=== PATIENT | male | born 1930 | race Caucasian/White ===

== ENCOUNTER 2019-11-07 05:02 | Day surgery (SDC) | payer OTHER ==
[~2019-11-07 05:02] MED LIST: ACETAMINOPHEN 325 MG TABLET (FP) PO PRN; BSS (NA/CA/MG/K) BALANCED SALT SOLUTION OPHTH SOLN 15 ML BOTTLE OS ONE; CHONDROITIN SU A/HYALUR SOD 1 KIT IO ONE; CYCLOPENTOLATE HCL 1% OPHTH SOLN 2 ML BOTTLE OP SCH; KETOROLAC TROMETHAMINE 0.5% EYE DROP 1 DROP DROPS OP SCH; LIDOCAINE HCL 1% PRESERVATIVE FREE - 30ML VIAL IO ONE; OFLOXACIN 0.3% OPHTHALMIC SOLUTION 5 ML BOTTLE OP SCH; PHENYLEPHRINE 2.5% OPHTH SOLN 15 ML BOTTLE OP SCH; PHENYLEPHRINE/KETOROLAC 4 ML VIAL IO ONE; POVIDONE-IODINE 5% OPHTHALMIC PREP 30 ML SOLUTION OS ONE; TETRACAINE 0.5% OPHTH SOLN 2 ML BOTTLE OS ONE; TROPICAMIDE 1% OPHTH SOLN 15 ML BOTTLE OP SCH; TRYPAN BLUE 0.5 ML DISP.SYRIN IO ONE
[2019-11-07] MEDS ORDERED: LIDOCAINE HCL/PF 1% SDV 5ML VIAL ONE (07:22)
[2019-11-07] MEDS ORDERED: POVIDONE-IODINE 5% OPHTHALMIC PREP 30 ML SOLUTION ONE (07:22)
[2019-11-07] MEDS ORDERED: TETRACAINE 0.5% OPHTH SOLN 2 ML BOTTLE ONE (07:22)
[2019-11-07] MEDS ORDERED: CHONDROITIN SU A/HYALUR SOD 1 KIT ONE (07:24)
[2019-11-07 09:49] VITALS: TEMP 96.8
[2019-11-07] MEDS ORDERED: TROPICAMIDE 1% OPHTH SOLN 15 ML BOTTLE ONE (09:56)
[2019-11-07] MEDS ORDERED: OFLOXACIN 0.3% OPHTHALMIC SOLUTION 5 ML BOTTLE ONE (09:56)
[2019-11-07] MEDS ORDERED: KETOROLAC TROMETHAMINE 0.5% EYE DROP 1 DROP DROPS ONE (09:57)
[2019-11-07] MEDS ORDERED: CYCLOPENTOLATE HCL 1% OPHTH SOLN 2 ML BOTTLE ONE (09:57)
[2019-11-07] MEDS ORDERED: PHENYLEPHRINE 2.5% OPHTH SOLN 15 ML BOTTLE OS ONE (10:00)
[2019-11-07] MEDS ORDERED: KETOROLAC TROMETHAMINE 0.5% EYE DROP 1 DROP DROPS OS ONE (10:00)
[2019-11-07] MEDS ORDERED: TROPICAMIDE 1% OPHTH SOLN 15 ML BOTTLE OS ONE (10:00)
[2019-11-07] MEDS ORDERED: CYCLOPENTOLATE HCL 1% OPHTH SOLN 2 ML BOTTLE OS ONE (10:00)
[2019-11-07] MEDS ORDERED: OFLOXACIN 0.3% OPHTHALMIC SOLUTION 5 ML BOTTLE OS ONE (10:00)
[2019-11-07] MEDS ORDERED: MIDAZOLAM HCL 2 MG/2 ML SINGLE DOSE VIAL ONE (11:51)
[2019-11-07] MEDS ORDERED: TETRACAINE 0.5% OPHTH SOLN 2 ML BOTTLE OS ONE (12:01)
[2019-11-07] MEDS ORDERED: POVIDONE-IODINE 5% OPHTHALMIC PREP 30 ML SOLUTION OS ONE (12:03)
[2019-11-07] MEDS ORDERED: CHONDROITIN SU A/HYALUR SOD 1 KIT IO ONE (12:08)
[2019-11-07] MEDS ORDERED: LIDOCAINE HCL 1% PRESERVATIVE FREE - 30ML VIAL IO ONE (12:08)
[2019-11-07] MEDS ORDERED: BSS (NA/CA/MG/K) BALANCED SALT SOLUTION OPHTH SOLN 15 ML BOTTLE OS ONE (12:08)
[2019-11-07] MEDS ORDERED: TRYPAN BLUE 0.5 ML DISP.SYRIN ONE (12:14)
[2019-11-07] MEDS ORDERED: TRYPAN BLUE 0.5 ML DISP.SYRIN IO ONE (12:20)
[2019-11-07] MEDS ORDERED: PHENYLEPHRINE/KETOROLAC 4 ML VIAL IO ONE (12:30)
--- NOTE | 2019-11-07 13:56 | OP ---
DATE OF OPERATION: DATE OF DICTATION: 11/07/2019 PREOPERATIVE DIAGNOSIS: Cataract, left eye. 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 3. Astigmatism, left eye. PROCEDURE: Phacoemulsification of left cataract with capsule staining with trypan blue, iris expansion with iris hooks and a toric posterior chamber intraocular lens implantation. LENS USED: [id number] lens, 23.0 diopter power, serial number [id number] ANESTHESIA: Topical, MAC. COMPLICATIONS: None. PROCEDURE: The patient was brought to the operating room and correctly identified along with the operative site as well as correct intraocular lens gonzalez. With the patient sitting upright, the 3, 6 and 9 o'clock positions were marked on his left cornea using a toric marker. The patient was placed in position on the stretcher and the garces were reinforced under the microscope. The eye was then prepped and draped in the usual sterile fashion including Betadine solution in the conjunctival sac and an eyelid drape. An eyelid speculum was then placed into the left eye. The 5-degree position was marked with a corneal toric marker. A paracentesis was created and 0.5 mL of preservative-free 1% lidocaine was given intracamerally. An air bubble was then placed in the eye and the capsule stained with trypan blue. Some of the BSS spiked with the Omidria was also placed in the eye. Viscoelastic was then injected to inflate the anterior chamber and a temporal clear corneal wound created at 15 degrees. Five additional paracentesis ports were created and using iris hooks the pupil was expanded in a raina configuration. A continuous circular capsulorrhexis was performed. The nucleus was then hydrodissected with BSS and removed with phacoemulsification via [id number] approach. The remaining cortical material was irrigated and aspirated from the eye. The viscoelastic was injected to inflate the capsular bag. The lens was injected into the bag and was noted to be approximately 10 degrees with final resting position. The iris hooks were then removed from the eye. The viscoelastic irrigated and aspirated from the eye. The pupil did remain dilated due to Omidria and using irrigation with the IA tip and an Sinskey hook the intraocular lens was rotated into its final position at 5 degrees. The garces were confirmed along with the corneal markings. All wounds were stromal hydrated and tested and found to be watertight. No suture was placed. At the end of the surgery the intraocular lens was noted to be well centered and covered by the anterior capsular border aligned at 5 degrees according to the intraocular lens markings and corneal marking. Topical vancomycin given, the eye patched and shielded, and the patient discharged from the operating room in a stable condition. MAZIN COPE M.D. [id number] [place]
[2019-11-07 15:03] VITALS: BP 119/65; PULSE 64
== END 2019-11-07 15:17 | disposition home or self-care (01) ==
LOC: JASU-SURG 05:02
PROVIDERS: ATTEND Ophthalmology
PROC: 08RK3JZ Replacement of Left Lens with Synthetic Substitute, Percutaneous Approach (ICD-10-PCS; principal; 2019-11-07 12:00)
DX: H26.9 Unspecified cataract (principal); H57.03 Miosis; H21.81 Floppy iris syndrome; H52.202 Unspecified astigmatism, left eye
CPT/HCPCS: J1097